=== PATIENT | female | born 1995 | race Caucasian/White ===

== ENCOUNTER 2023-12-06 12:22 | Emergency (ER) | payer OTHER ==
[~2023-12-06] VITALS: Ht 152.4 cm; Wt 65.8 kg
[2023-12-06 14:33] LABS: HEMATOCRIT 35.5 % (36.0-45.00); HEMOGLOBIN 12.1 g/dL (12.0-15.00); MEAN CELL VOLUME 83.3 fL (80.00-100.00); MEAN CORPUSCULAR HEMOGLOBIN 28.4 pg (27.00-32.0); PLATELET COUNT 330 K/uL (150-450); RED BLOOD COUNT 4.27 M/uL (4.00-6.00); RED CELL DISTRIBUTION WIDTH 14.5 % (11.5-14.5)
[2023-12-06 14:47] LABS: INR 1.05; PARTIAL THROMBOPLASTIN TIME 29.1 SECONDS (22.0-34.0); PROTHROMBIN TIME 11.4 SECONDS (9.0-11.5)
[2023-12-06 14:53] LABS: ANION GAP 7 (10.0-20.0); BLOOD UREA NITROGEN 16 mg/dL (7-18); BUN CREA RATIO 22 (7.0-25.0); CALCIUM 8.9 mg/dL (8.5-10.1); CARBON DIOXIDE 30 mEq/L (21-32); CHLORIDE 107 mmol/L (98-107); CREATININE SERUM 0.72 mg/dL (0.55-1.02); GFR 97.91; GLUCOSE FASTING 92 mg/dL (65-100); OSMOLALITY SERUM 280 MOSM/KG (275-295); POTASSIUM 4.13 mEq/L (3.5-5.1); SODIUM 140 mmol/L (136-145)
[2023-12-06 14:55] LABS: HCG QUANTITATIVE < 1 mUI/mL (1-3)
[2023-12-06 15:31] LABS: PH,URINE 7.5 (5.0-8.0); URINE APPEARANCE Turbid; URINE BILIRRUBIN Negative (NEGATIVE); URINE BLOOD Large; URINE COLOR Yellow; URINE GLUCOSE Negative (NEGATIVE); URINE KETONE Trace (NEGATIVE); URINE LEUKOCYTE Trace; URINE NITRATE Negative; URINE PROTEIN Trace (NEGATIVE); URINE UROBILINOGEN 0.2 E.U./dl
[2023-12-06 15:35] LABS: URINE BACTERIA 142.3 uL (0.0-1933); URINE EPITHELIAL CELLS 9.1 uL (0.0-38.8); URINE RBC 5447.1 uL (0.0-20.8); URINE WBC 40.8 uL (0.0-23.2)
[2023-12-06 15:58] LABS: URINE CAST 0.15 uL (0.0-1.40)
== END 2023-12-06 18:34 | disposition home or self-care (01) ==
LOC: ER 12:24
PROVIDERS: General Practice
DX: N93.8 Other specified abnormal uterine and vaginal bleeding (principal); N94.6 Dysmenorrhea, unspecified; N83.292 Other ovarian cyst, left side